=== PATIENT | female | born 2005 | race Caucasian/White ===

== ENCOUNTER 2024-06-17 03:38 | Emergency (ER) | payer OTHER, SELFPAY ==
[2024-06-17 03:39] VITALS: BP 127/76; PULSE 94; RESP 16; TEMP 36.9; O2SAT 99; BMI 19.1
[2024-06-17] MEDS: Acetaminophen 500 MG Tablet 1000 MG PO (04:06)
--- NOTE | 2024-06-17 04:06 | EX.ED.DYSGE1 ---
HPI History of Present Illness Chief Complaint: Abd Pain Informant: patient and parent Narrative Narrative: Patient is a 19-year-old female with no past medical history. She is a G1, P0. She states that her menstrual cycle was supposed to start /4 days ago and then did not do so. She reports she is typically regular. Therefore she took a home test and it was positive. She states that in the last 24 hours she has had intermittent pain along either side of the lower abdomen. She reports that there is no dysuria or back pain with this. She denies any vaginal bleeding or discharge. The patient's mother states that she had an ectopic once and has concern that with her child's recent positive test at home and now intermittent pain is having an ectopic and therefore she was brought in for evaluation [facility] Medical History no medical history no medical history Home Medications ?Medication ?Instructions ?Recorded ?Last Taken ?Type NK 06/17/24 Unknown History Allergy/AdvReac Type Severity Reaction Status Date / Time No Known Allergies Allergy Verified 06/17/24 03:39 Family History no significant family his Surgical History no surgical history Social History Smoking Status: Never smoker ROS ROS ED Constitutional Constitutional ED: Denies chills or fever(s) ENT ENT ED: Denies sore throat Cardiovascular Cardiovascular: Denies chest pain Respiratory/Chest Respiratory/Chest: Denies cough or dyspnea Gastrointestinal Gastrointestinal: Reports abdominal pain; Denies diarrhea, nausea or vomiting Genitourinary Genitourinary ED: Reports other Details: Negative for vaginal bleeding or discharge ; Denies dysuria or hematuria Musculoskeletal Musculoskeletal: Denies back pain Integumentary Denies rash Neurologic Neurologic: Denies headache(s) Hematologic/Lymphatic Hematologic/Lymphatic: Denies easy bleeding or easy bruising EXAM Physical Exam Const Vital Signs: 06/17/24 03:39 06/17/24 05:39 06/17/24 05:42 Temperature 98.4 F Temperature Source Oral Pulse Rate 94 72 74 Respiratory Rate 16 16 17 Blood Pressure 127/76 H 123/72 H 123/72 H Blood Pressure Mean 93 89 89 Pulse Ox 99 99 99 Oxygen Delivery Method Room Air Room Air Room Air 06/17/24 07:00 Temperature Temperature Source Pulse Rate 87 Respiratory Rate 16 Blood Pressure 113/66 Blood Pressure Mean 81 Pulse Ox 98 Oxygen Delivery Method Room Air Positive well nourished and well developed General Appearance ED: well developed; Negative for pallor HEENT HEENT Narrative: Normocephalic atraumatic Eyes PERRL and EOMs intact bilaterally General Eye ED: Negative for scleral icterus Neck supple Resp normal respiratory effort and clear to auscultation bilaterally Cardio regular rate and regular rhythm Rate: other Other Details: Regular rate and rhythm without murmurs rubs or gallop Radial and carotid pulses are equal and symmetric GI normal to inspection, nondistended, normoactive bowel sounds, non-tender, non-distended and no masses GI Narrative: No voluntary guarding or rigidity or pulsatile mass No fluid wave or peritoneal signs Auscultation: normoactive bowel sounds Palpation: soft Narrative: Patient deferred Back/Spine no CVA tenderness Extremity normal to inspection Extremity Narrative: No asymmetric edema no pitting edema negative Homans' sign bilaterally Neuro oriented x3 and CN's II-XII intact bilaterally Sensorium / Orientation: alert Motor Exam: strength 5/5 throughout Psych mental status grossly normal Skin no rashes or lesions noted and no wounds General Skin Exam: Negative for jaundice or pallor MDM MDM MDM Narrative Medical decision making narrative: Patient arrived to the ER with stable vitals and a soft nonsurgical abdomen. She reported intermittent abdominal pain that could fluctuate between the right and left lower regions over the last 1 to 2 days. There is no associated dysuria or hematuria or vaginal discharge. Patient denied any flank pain or fevers or chills. Mother had concern about a potential ectopic based on her pain and status as she had this in the past. Other differentials include UTI versus pyelonephritis versus round ligament pain. Basic blood work revealed no leukocytosis or left shift there was no sign of infection within the urine and no signs of acute kidney injury or clinically significant electrolyte abnormality. The patient's quantitative hCG value was 599 which indicate only 2 to 3 weeks . Based on her reported shifting pain that is intermittent I have low concern that this is an ectopic but based on her early status and pain it is still in the differential and therefore we will perform a transvaginal ultrasound. The patient and family were advised that based on her early status the ultrasound still might not show any signs of intrauterine which does not necessarily mean she has an ectopic but just that it is early in the stage. The patient is transvaginal ultrasound did not reveal any signs of intrauterine or ectopic . This is consistent with early gestational age. I informed the patient and family of this official read. I did offer and recommend that I consult with [facility] to confirm there is nothing further they would want performed or tested at this time. The patient and family state that they do not want that done and they will decide if they want to follow-up as an outpatient. I did instruct patient and family that in order to ensure her safety and confirm that something was not missed based on her the patient's early gestational age that she will need repeat blood work and a repeat ultrasound in the next few days or week. They state they understand this but will decide on their own if they continue to follow-up with BI[facility] SCIENTIST or have the further testing done. At this time the patient's vitals are stable her abdomen is soft and nonsurgical she does not have any further bouts of pain and therefore will be discharged home to hopefully follow-up as an outpatient History & Record Review Discussion w/independent historian: Patient and Family Lab Data Attestation: I reviewed the patient's lab results. Labs: Laboratory Results - last 24 hr 06/17/24 06/17/24 04:05 04:15 WBC 6.0 RBC 4.30 Hgb 12.7 Hct 37.3 MCV 86.7 MCH 29.5 MCHC 34.0 RDW Std Deviation 38.6 RDW Coeff of Jessa 12.1 Plt Count 219 MPV 9.4 Immature Gran % (Auto) 0.500 Neut % (Auto) 59.3 Lymph % (Auto) 30.3 [place] % (Auto) 7.7 Eos % (Auto) 1.5 Baso % (Auto) 0.7 Absolute Neuts (auto) 3.6 Absolute Lymphs (auto) 1.82 Nucleated RBC % 0 Sodium 140 Potassium 3.7 Chloride 111 H Carbon Dioxide 22.0 Anion Gap 7 BUN 10 Creatinine 0.65 Estim Creat Clear Calc 112.61 Est GFR (MDRD) Af Amer 149 Est GFR (MDRD) Non-Af 123 BUN/Creatinine Ratio 15.4 Glucose 90 Calcium 8.5 HCG, Quant 599 H Urine Color Yellow Urine Clarity Clear Urine pH 6.5 Ur Specific [place] 1.005 Urine Protein Negative Urine Glucose (UA) Normal Urine Ketones Negative Urine Occult Blood Negative Urine Nitrite Negative Urine Bilirubin Negative Urine Urobilinogen Normal Ur Leukocyte Esterase Negative Urine RBC 0 SEEN Urine WBC 0 SEEN Ur Squamous Epith Cells 0 SEEN Urine Bacteria 0 SEEN Urine Mucus 0 SEEN Blood Type O POSITIVE Radiography Diagnostic Testing: Clinical Impression(s) from Imaging Studies Obstetrics Ultrasound 06/17/24 04:51 IMPRESSION: No intrauterine gestation is seen. By coronary uterus. The endometrium measures 1.8 cm. Minimal amount of free fluid in the cul-de-sac. The adnexa are unremarkable. Correlation with serial beta HCG recommended. Reading Location: [facility] Discharge Plan Triage Chief Complaint: Abd Pain ED Provider: Mauri Cadet Dx/Rx/DC Orders Clinical Impression: Abdominal pain during in first trimester Instructions: Abdominal Pain, 1st Trimester Prescriptions: No Action NK Primary Care Provider: Care Physician,No Primary Referrals: Radha Trujillo MD [Med Staff - Active Staff] - Care Physician,No Primary [Primary Care Provider] - Activity Restrictions/Additional Instructions: Please follow-up with [facility]ENT[facility] to obtain repeat values and ultrasounds to ensure is progressing per usual. If you develop increased pain a fever or vaginal bleeding or have any further concerns please return to the hospital for repeat evaluation. Print Language: Danish Disposition Disposition: Home, Self Care
[2024-06-17 04:15] LABS: Absolute Lymphocyte Count 1.82 X10^3/uL (0.83-4.51); Absolute Neutrophil Count 3.6 X10^3/uL (2.0-7.7); Basophil# 0.04 X10^3/uL; Basophil% 0.7 % (0-1); Eosinophil# 0.09 X10^3/uL; Eosinophils% 1.5 % (0-5); Hematocrit 37.3 % (37-47); Hemoglobin 12.7 g/dL (12.0-15.0); Lymphocyte # 1.82 X10^3/ul (0.83-4.51); Lymphocyte % 30.3 % (19-41); Mean Corpuscular Hgb 29.5 pg (27.0-32.0); Mean Corpuscular Volume 86.7 fL (81-99); Mean Platelet Vol. 9.4 fl (6.2-12.0); Monocyte# 0.46 X10^3/uL; Monocyte% 7.7 % (0-10); NRBC Flagged by Analyzer 0 % (0-5); Neutrophil # 3.56 X10^3/uL (2.7-7.7); Neutrophil % 59.3 % (47-70); Platelet Count 219 K/mm3 (150-450); RBC Distribution Width CV 12.1 % (11.6-14.6); RBC Distribution Width SD 38.6 fl (35.1-43.9)
[2024-06-17 04:20] LABS: Bacteria 0 SEEN /hpf (None Seen); Mucous, Urine 0 SEEN /hpf (<or=2+); Red Blood Cells-Urine 0 SEEN /hpf (0-5); Squamous Epithelial Cells - UA 0 SEEN /hpf (5-10); White Blood Cells 0 SEEN /hpf (0-5)
[2024-06-17 04:21] LABS: Color, Urine Yellow (Yellow); Glucose, Dipstick Normal (Normal); Ketone-Dipstick Negative (Negative); Leukocyte Esterase-Dipstick Negative /ul (Negative); Nitrite-Dipstick Negative (Negative); Occult Blood-Urine Negative /ul (Negative); Protein-Dipstick Negative (Negative); Specific Gravity, Urine 1.005 (1.002-1.030); Urine Bilirubin Dipstick Negative (Negative); Urine Clarity Clear (Clear); Urine Urobilinogen Normal (Normal); Urine pH 6.5 (5.0 - 8.0)
[2024-06-17 04:30] LABS: Anion Gap 7 (5-15); BUN 10 mg/dL (7-18); BUN/Creat Ratio 15.4 RATIO (10-20); Calcium,Total 8.5 mg/dL (8.5-10.1); Chloride 111 mmol/L (98-107); Creatinine, Serum 0.65 mg/dL (0.55-1.02); EST Glomerular Filtration Rate 123 mL/min (>60); Est Glom Filt Rate - Afr Amer 149 mL/min (>60); Estimated Creatinine Clearance 112.61 ml/min; Glucose 90 mg/dL (74-106); Potassium 3.7 mmol/L (3.5-5.1); Sodium Level 140 mmol/L (136-145)
[2024-06-17 04:33] LABS: hCG Titer Quant., Serum 599 mIU/mL (1-3)
--- NOTE | 2024-06-17 04:51 | US_ITS ---
PROCEDURE: TRANSVAGINAL W/PREG US REASON FOR EXAM: Pelvic pain. LMP: May 16, 2024. HC COMPARISON: None. FINDINGS: Comments: Transvaginal imaging was performed Number of Gestational Sacs: None Number of Fetuses: None Yolk Sac: Not visualized Uterine Abnormalities: Maternal uterus is unremarkable. The uterus measures 8.9 cm x 7.1 cm x 4.8 cm. The endometrium measures 1.8 cm. By coronary uterus. Ovaries / Adnexa: Both maternal ovaries are visualized and unremarkable. Minimal amount of free fluid in the cul-de-sac. US/Transvaginal w/Preg US IMPRESSION: No intrauterine gestation is seen. By coronary uterus. The endometrium measures 1.8 cm. Minimal amount of free fluid in the cul-de-sac. The adnexa are unremarkable. Correlation with serial beta HCG recommended. Reading Location: [facility]
[2024-06-17 05:39] VITALS: BP 123/72; PULSE 72; RESP 16; O2SAT 99
[2024-06-17 05:42] VITALS: BP 123/72; PULSE 74; RESP 17; O2SAT 99
[2024-06-17 07:00] VITALS: BP 113/66; PULSE 87; RESP 16; O2SAT 98
[2024-06-17 07:42] VITALS: BP 117/74; PULSE 78; RESP 18; TEMP 36.8; O2SAT 98
== END 2024-06-17 08:00 | disposition home or self-care (01) ==
PROVIDERS: Emergency Provider Emergency Medicine; Visit Provider Emergency Medicine
DX: O99.891 Other specified diseases and conditions complicating pregnancy (principal); R10.32 Left lower quadrant pain; Z3A.01 Less than 8 weeks gestation of pregnancy; R10.31 Right lower quadrant pain
CPT/HCPCS: 76817; 80048; 81001; 84702; 85025; 86900; 86901; 99282; A4216

== ENCOUNTER 2024-06-30 20:39 | Emergency (ER) | payer OTHER, SELFPAY ==
[2024-06-30 20:40] VITALS: BP 108/66; PULSE 92; RESP 15; TEMP 36.6; O2SAT 99; BMI 19.9
--- NOTE | 2024-06-30 21:11 | EDS_ITS ---
HPI <JOSEFINA Waldron - Last Filed: 06/30/24 21:14> HPI - Female History of Present Illness Chief Complaint: Vag Bld, Preg Narrative Narrative: Patient is a 19-year-old female with no significant medical history, presenting to the emergency department for complaints of vaginal bleeding, patient is what she believes is 5 weeks . Patient states her last menstrual cycle was May 16, 2024. Patient was seen here 2 weeks ago, patient had an ultrasound that was negative for any uterine , patient states that yesterday she had some significant vaginal bleeding, patient had some lower abdominal pain today even though the bleeding was more mild and is here for evaluation. Patient has not seen an MATERIAL CHECKER yet at this time. She is only been seen here 2 weeks ago. Patient is O+. Initial quantitative was 599 PFSH <JOSEFINA Waldron - Last Filed: 06/30/24 21:14> PFSH Medical History no medical history Home Medications ?Medication ?Instructions ?Recorded ?Last Taken ?Type NK 06/17/24 Unknown History Allergy/AdvReac Type Severity Reaction Status Date / Time No Known Allergies Allergy Verified 06/30/24 20:40 Social History Smoking Status: Never smoker ROS <JOSEFINA Waldron - Last Filed: 06/30/24 21:14> ROS ED ROS Narrative Constitutional: Negative for fever, chills, weight loss, weakness Eyes: Negative for vision loss, vision change, double vision ENT: Negative for any sore throat, ear pain, congestion Cardiovascular: Negative for any chest pain, tightness, palpitations Respiratory: Negative for any cough, sputum production, hemoptysis, dyspnea, dyspnea on exertion, orthopnea Gastrointestinal: Negative for any, nausea, vomiting, diarrhea, constipation, blood in stool, blood in vomit. Positive lower abdominal pain : Negative for any urinary frequency, dysuria, retention, blood in urine. Positive for vaginal bleeding, Muscle skeletal: Negative for any neck pain, back pain Neurological: Negative for any headache, syncope, dizziness Skin: Negative for any rashes, itching, abrasions, lacerations Psychiatric: Negative for any depression, anxiety, stress, suicidal ideation, homicidal ideation Hematologic: Negative for any excessive bruising, easy bleeding EXAM <JOSEFINA Waldron - Last Filed: 06/30/24 21:14> Physical Exam Narrative Exam Narrative: Vital signs reviewed. HEET: Head normocephalic atraumatic, TMs clear bilaterally. Posterior pharynx is clear, moist mucous membranes. Nares clear bilaterally. Neck: Supple with no lymphadenopathy or tenderness. No signs of meningismus. Cardiac: Regular rate and rhythm no murmurs gallops or rubs, equal peripheral pulses bilaterally. Respiratory: Lungs clear to auscultation bilaterally. No chest tenderness. Abdomen: Soft, nontender, nondistended. No abdominal bruit or pulsatile masses. No hepatosplenomegaly Extremities: No peripheral edema, no signs of gross trauma or deformity. Active full range of motion of all extremities. Neuro: Cranial nerves II through XII intact, no focal neurological deficits. Skin: Clean dry and intact with no rash, purpura, petechiae, vesicles or pustules. Backs/flank: No CVA tenderness, no midline spinal tenderness, no deformity. Psych: Normal mood and affect. No SI, HI or acute psychosis. Const Vital Signs: 06/30/24 20:40 06/30/24 23:06 Temperature 97.9 F Temperature Source Temporal Pulse Rate 92 79 Respiratory Rate 15 18 Blood Pressure 108/66 118/64 Blood Pressure Mean 80 82 Pulse Ox 99 100 Oxygen Delivery Method Room Air Room Air <Dr. Azael Batres DO - Last Filed: 06/30/24 23:42> Physical Exam Const Vital Signs: 06/30/24 20:40 06/30/24 23:06 Temperature 97.9 F Temperature Source Temporal Pulse Rate 92 79 Respiratory Rate 15 18 Blood Pressure 108/66 118/64 Blood Pressure Mean 80 82 Pulse Ox 99 100 Oxygen Delivery Method Room Air Room Air <Dr. Kenna Tariq DO - Last Filed: 07/01/24 01:05> Physical Exam Const Vital Signs: 06/30/24 20:40 06/30/24 23:06 Temperature 97.9 F Temperature Source Temporal Pulse Rate 92 79 Respiratory Rate 15 18 Blood Pressure 108/66 118/64 Blood Pressure Mean 80 82 Pulse Ox 99 100 Oxygen Delivery Method Room Air Room Air MDM <JOSEFINA Waldron - Last Filed: 06/30/24 21:14> MDM Lab Data Labs: Laboratory Results - last 24 hr 06/30/24 06/30/24 21:08 21:10 WBC 8.6 RBC 4.32 Hgb 13.0 Hct 37.5 MCV 86.8 MCH 30.1 MCHC 34.7 RDW Std Deviation 37.4 RDW Coeff of Jessa 11.7 Plt Count 231 MPV 9.6 Immature Gran % (Auto) 0.600 Neut % (Auto) 60.8 Lymph % (Auto) 29.7 [place] % (Auto) 7.1 Eos % (Auto) 1.3 Baso % (Auto) 0.5 Absolute Neuts (auto) 5.2 Absolute Lymphs (auto) 2.55 Nucleated RBC % 0 Sodium 139 Potassium 3.8 Chloride 107 Carbon Dioxide 26.0 Anion Gap 6 BUN 8 Creatinine 0.61 Estim Creat Clear Calc 121.18 Est GFR (MDRD) Af Amer 160 Est GFR (MDRD) Non-Af 133 BUN/Creatinine Ratio 13.2 Glucose 89 Calcium 9.1 HCG, Quant 83387 H Urine Color Yellow Urine Clarity Clear Urine pH 7.0 Ur Specific [employer] 1.010 Urine Protein 15 H Urine Glucose (UA) Normal Urine Ketones Negative Urine Occult Blood 250 H Urine Nitrite Negative Urine Bilirubin Negative Urine Urobilinogen Normal Ur Leukocyte Esterase Negative Urine RBC 0-5 SEEN Urine WBC 0-5 SEEN Ur Squamous Epith Cells 0-5 SEEN Urine Bacteria 1+ Urine Mucus 0 SEEN Radiography Diagnostic Testing: Clinical Impression(s) from Imaging Studies Obstetrics Ultrasound 06/30/24 22:01 IMPRESSION: 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 2. Twin A on left demonstrates gestational sac full of debris with subchorionic hemorrhage. No yolk sac noted. 3. Twin B on right demonstrates yolk sac corresponding to 6 weeks 2 days. No pole or heart rate noted at this time. This may be due to early dates. 4. Left ovarian cyst Reading Location: [facility] Treatment and Re-Evaluation Narrative: Differential diagnosis includes however is not limited to: Spontaneous , dysmenorrhea, threatened miscarriage, ectopic , ovarian cyst Patient appears generally well, vital signs are stable, patient is nontoxic- appearing. Presenting to the emerged department for complaints of vaginal bleeding, lower abdominal pain, patient states that she is 5 weeks . Patient's initial hCG quantitative done on June 16 was 599, the vaginal ultrasound showed no gestational sac in the uterus. This likely secondary to being too early. Patient will receive urinalysis, basic labs, hCG quantitative to compare the number. <Dr. Azael Batres, DO - Last Filed: 06/30/24 23:42> [facility] Narrative Medical decision making narrative: I have personally performed a face to face assessment of the patient and have reviewed the SARABJIT Note. I performed a substantive portion of the visit including all aspects of the following. My dorsey findings include: History: Patient presents with change in the lower abdominal and pelvic pain that has been getting worse over the past 2 weeks. Patient states it comes and goes. Patient states it became worse tonight. Patient states it is worse with movement. Patient describes her pain as sharp. Patient states it is localized to the lower abdomen and pelvis. Patient admits to some subjective chills and a headache. Patient denies any nausea or vomiting. Patient denies any urinary complaints. Family states the patient has been following with a nurse transmission inspector (Georgiana Ennis) but does not see an MATERIAL CHECKER physician. Exam: Vital signs are stable. Patient is afebrile. Patient is in no acute distress. Oral mucosa is pink and moist. Neck is supple. Trachea is midline. There is no JVD. Heart was regular rate and rhythm. Lungs are clear and equal bilaterally. Abdomen is soft. Bowel sounds are normal. There is lower abdominal tenderness. There is no rebound or guarding noted. Cranial nerves II through XII are intact. There are no focal motor or sensory deficits. Medical Decision Making: Differential diagnosis includes ectopic , ovarian cyst, urinary tract infection, electrolyte abnormality, and viral illness. CBC will be obtained to assess for leukocytosis and anemia. Basic metabolic profile will be obtained to assess for electrolyte abnormality and renal function. Urinalysis will be obtained to assess for urinary tract infection and hematuria. Quantitative hCG will be obtained to assess for pregn katty. CBC was reviewed and was within normal limits. Basic metabolic profile was reviewed and was within normal limits. Quantitative hCG was reviewed and was [address]. Urinalysis was reviewed. There is no evidence of urinary tract infection or hematuria. Because of the increasing quantitative hCG and pelvic pain, pelvic ultrasound was ordered to assess for ectopic and ovarian torsion. Care of the patient will be turned over to the oncoming physician pending ultrasound results. Lab Data Labs: Laboratory Results - last 24 hr 06/30/24 06/30/24 21:08 21:10 WBC 8.6 RBC 4.32 Hgb 13.0 Hct 37.5 MCV 86.8 MCH 30.1 MCHC 34.7 RDW Std Deviation 37.4 RDW Coeff of Jessa 11.7 Plt Count 231 MPV 9.6 Immature Gran % (Auto) 0.600 Neut % (Auto) 60.8 Lymph % (Auto) 29.7 [place] % (Auto) 7.1 Eos % (Auto) 1.3 Baso % (Auto) 0.5 Absolute Neuts (auto) 5.2 Absolute Lymphs (auto) 2.55 Nucleated RBC % 0 Sodium 139 Potassium 3.8 Chloride 107 Carbon Dioxide 26.0 Anion Gap 6 BUN 8 Creatinine 0.61 Estim Creat Clear Calc 121.18 Est GFR (MDRD) Af Amer 160 Est GFR (MDRD) Non-Af 133 BUN/Creatinine Ratio 13.2 Glucose 89 Calcium 9.1 HCG, Quant 33896 H Urine Color Yellow Urine Clarity Clear Urine pH 7.0 Ur Specific [employer] 1.010 Urine Protein 15 H Urine Glucose (UA) Normal Urine Ketones Negative Urine Occult Blood 250 H Urine Nitrite Negative Urine Bilirubin Negative Urine Urobilinogen Normal Ur Leukocyte Esterase Negative Urine RBC 0-5 SEEN Urine WBC 0-5 SEEN Ur Squamous Epith Cells 0-5 SEEN Urine Bacteria 1+ Urine Mucus 0 SEEN Radiography Diagnostic Testing: Clinical Impression(s) from Imaging Studies Obstetrics Ultrasound 06/30/24 22:01 IMPRESSION: 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 2. Twin A on left demonstrates gestational sac full of debris with subchorionic hemorrhage. No yolk sac noted. 3. Twin B on right demonstrates yolk sac corresponding to 6 weeks 2 days. No pole or heart rate noted at this time. This may be due to early dates. 4. Left ovarian cyst Reading Location: [facility] <Dr. Kenna Tariq, DO - Last Filed: 07/01/24 01:05> [facility] Narrative Medical decision making narrative: I have personally performed a face to face assessment of the patient and have reviewed the SARABJIT Note. I performed a substantive portion of the visit including all aspects of the following. My dorsey findings include: History: Patient presents with change in the lower abdominal and pelvic pain that has been getting worse over the past 2 weeks. Patient states it comes and goes. Patient states it became worse tonight. Patient states it is worse with movement. Patient describes her pain as sharp. Patient states it is localized to the lower abdomen and pelvis. Patient admits to some subjective chills and a headache. Patient denies any nausea or vomiting. Patient denies any urinary complaints. Family states the patient has been following with a nurse transmission inspector (Georgiana Ennis) but does not see an MATERIAL CHECKER physician. Exam: Vital signs are stable. Patient is afebrile. Patient is in no acute distress. Oral mucosa is pink and moist. Neck is supple. Trachea is midline. There is no JVD. Heart was regular rate and rhythm. Lungs are clear and equal bilaterally. Abdomen is soft. Bowel sounds are normal. There is lower abdominal tenderness. There is no rebound or guarding noted. Cranial nerves II through XII are intact. There are no focal motor or sensory deficits. Medical Decision Making: Differential diagnosis includes ectopic , ovarian cyst, urinary tract infection, electrolyte abnormality, and viral illness. CBC will be obtained to assess for leukocytosis and anemia. Basic metabolic profile will be obtained to assess for electrolyte abnormality and renal function. Urinalysis will be obtained to assess for urinary tract infection and hematuria. Quantitative hCG will be obtained to assess for . CBC was reviewed and was within normal limits. Basic metabolic profile was reviewed and was within normal limits. Quantitative hCG was reviewed and was 05826. Urinalysis was reviewed. There is no evidence of urinary tract infection or hematuria. Because of the increasing quantitative hCG and pelvic pain, pelvic ultrasound was ordered to assess for ectopic and ovarian torsion. Care of the patient will be turned over to the oncoming physician pending ultrasound results. Care of patient turned over to me Dr. Tariq. Patient seen by Dr. Godoy initially and I was asked to check pelvic ultrasound results. Patient on ultrasound was noted to have a bicornate uterus. Patient had twin A on the left demonstrating gestational sac full of debris with subchorionic hemorrhage. No yolk sac was noted. Twin B on the right demonstrates yolk sac corresponding to 6 weeks 2 days. No pole or heart rate noted at this time. This may be due to early dates. I did discuss case with Dr. Hernandez who is on-call for MATERIAL CHECKER. Patient is O+. She is not having heavy bleeding and H&H was stable. Patient will be discharged to home and advised to follow-up with Dr. Hernandez in the office that she will need follow-up quant and ultrasound. Advised to return if persistent heavy bleeding, severe abdominal pain, or condition worsening way. Lab Data Labs: Laboratory Results - last 24 hr 06/30/24 06/30/24 21:08 21:10 WBC 8.6 RBC 4.32 Hgb 13.0 Hct 37.5 MCV 86.8 MCH 30.1 MCHC 34.7 RDW Std Deviation 37.4 RDW Coeff of Jessa 11.7 Plt Count 231 MPV 9.6 Immature Gran % (Auto) 0.600 Neut % (Auto) 60.8 Lymph % (Auto) 29.7 [place] % (Auto) 7.1 Eos % (Auto) 1.3 Baso % (Auto) 0.5 Absolute Neuts (auto) 5.2 Absolute Lymphs (auto) 2.55 Nucleated RBC % 0 Sodium 139 Potassium 3.8 Chloride 107 Carbon Dioxide 26.0 Anion Gap 6 BUN 8 Creatinine 0.61 Estim Creat Clear Calc 121.18 Est GFR (MDRD) Af Amer 160 Est GFR (MDRD) Non-Af 133 BUN/Creatinine Ratio 13.2 Glucose 89 Calcium 9.1 HCG, Quant 67096 H Urine Color Yellow Urine Clarity Clear Urine pH 7.0 Ur Specific [employer] 1.010 Urine Protein 15 H Urine Glucose (UA) Normal Urine Ketones Negative Urine Occult Blood 250 H Urine Nitrite Negative Urine Bilirubin Negative Urine Urobilinogen Normal Ur Leukocyte Esterase Negative Urine RBC 0-5 SEEN Urine WBC 0-5 SEEN Ur Squamous Epith Cells 0-5 SEEN Urine Bacteria 1+ Urine Mucus 0 SEEN Radiography Diagnostic Testing: Clinical Impression(s) from Imaging Studies Obstetrics Ultrasound 06/30/24 22:01 IMPRESSION: 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 2. Twin A on left demonstrates gestational sac full of debris with subchorionic hemorrhage. No yolk sac noted. 3. Twin B on right demonstrates yolk sac corresponding to 6 weeks 2 days. No pole or heart rate noted at this time. This may be due to early dates. 4. Left ovarian cyst [facility] Discharge Plan Triage Chief Complaint: Vag Bld, Preg ED Midlevel Provider: Rajeev Lamb ED Provider: Azael Batres Dx/Rx/DC Orders Clinical Impression: Pelvic pain, , Threatened in first trimester Instructions: ED Abdominal Pain, Early , Miscarriage Threatened Prescriptions: No Action NK Primary Care Provider: Care Physician,No Primary Referrals: Cinda Hernandez MD [Med Staff - Active Staff] - 2 Days Care Physician,No Primary [Primary Care Provider] - Print Language: Chinese Disposition Disposition: Home, Self Care
[2024-06-30 21:17] LABS: Mucous, Urine 0 SEEN /hpf (<or=2+)
[2024-06-30 21:24] LABS: Glucose, Dipstick Normal (Normal); Ketone-Dipstick Negative (Negative); Leukocyte Esterase-Dipstick Negative /ul (Negative); Nitrite-Dipstick Negative (Negative); Occult Blood-Urine 250 /ul (Negative); Protein-Dipstick 15 mg/dl (Negative); Urine Bilirubin Dipstick Negative (Negative); Urine Urobilinogen Normal (Normal)
[2024-06-30 21:25] LABS: Absolute Lymphocyte Count 2.55 X10^3/uL (0.83-4.51); Absolute Neutrophil Count 5.2 X10^3/uL (2.0-7.7); Basophil# 0.04 X10^3/uL; Basophil% 0.5 % (0-1); Eosinophil# 0.11 X10^3/uL; Eosinophils% 1.3 % (0-5); Hematocrit 37.5 % (37-47); Lymphocyte # 2.55 X10^3/ul (0.83-4.51); Lymphocyte % 29.7 % (19-41); Mean Corp Hgb Conc 34.7 g/dL (32-36); Mean Corpuscular Hgb 30.1 pg (27.0-32.0); Mean Corpuscular Volume 86.8 fL (81-99); Mean Platelet Vol. 9.6 fl (6.2-12.0); Monocyte# 0.61 X10^3/uL; Monocyte% 7.1 % (0-10); NRBC Flagged by Analyzer 0 % (0-5); Neutrophil # 5.24 X10^3/uL (2.7-7.7); Neutrophil % 60.8 % (47-70); Platelet Count 231 K/mm3 (150-450); RBC Distribution Width CV 11.7 % (11.6-14.6); RBC Distribution Width SD 37.4 fl (35.1-43.9); Red Blood Count 4.32 M/mm3 (4.2-5.4); White Blood Count 8.6 K/mm3 (4.4-11.0)
[2024-06-30 21:25] LABS: Color, Urine Yellow (Yellow); Urine Clarity Clear (Clear)
[2024-06-30 21:36] LABS: Anion Gap 6 (5-15); BUN 8 mg/dL (7-18); BUN/Creat Ratio 13.2 RATIO (10-20); Calcium,Total 9.1 mg/dL (8.5-10.1); Chloride 107 mmol/L (98-107); Creatinine, Serum 0.61 mg/dL (0.55-1.02); EST Glomerular Filtration Rate 133 mL/min (>60); Est Glom Filt Rate - Afr Amer 160 mL/min (>60); Estimated Creatinine Clearance 121.18 ml/min; Glucose 89 mg/dL (74-106); Potassium 3.8 mmol/L (3.5-5.1); Sodium Level 139 mmol/L (136-145)
[2024-06-30 21:42] LABS: Bacteria 1+ /hpf (None Seen); Red Blood Cells-Urine 0-5 SEEN /hpf (0-5); Squamous Epithelial Cells - UA 0-5 SEEN /hpf (5-10); White Blood Cells 0-5 SEEN /hpf (0-5)
[2024-06-30 21:59] LABS: hCG Titer Quant., Serum 17135 mIU/mL (1-3)
--- NOTE | 2024-06-30 22:01 | US_ITS ---
PROCEDURE: TRANSVAGINAL W/PREG US REASON FOR EXAM: Pelvic pain COMPARISON: 06/19/2024 FINDINGS: Comments: Number of Gestational Sacs: 2 Number of Fetuses: 1 Chorionicity and Amnionicity: Dichorionic Ovaries / Adnexa: Both maternal ovaries are visualized and unremarkable. Right ovary measures 2.9 x 2.2 x 2.0 cm Left ovary measures 3.2 x 2.9 x 3.0 cm and contains a hypoechoic focus measuring 3.2 x 1.7 x 3.0 cm Uterine Abnormalities: Maternal uterus is unremarkable. It measures 9.2 x 8.3 x 4.3 cm. ----- Twin A: Gestational Sac Shape: Slightly misshapen, gestational sac contains complex debris. There is a 1.1 x 0.9 x 0.5 cm subchorionic hematoma Heart Rate: Not detected (average) Yolk Sac: Nonvisualized DIMENSIONS (A): Parameter Measurement / EGA Gomer Rump Length: Not visualized Gestational Sac: 1.65 cm/6 weeks 3 days Yolk Sac: Not visualized ESTIMATED GESTATIONAL AGE (A): By Ultrasound: 6 weeks 3 days ESTIMATED DATE OF DELIVERY (A): By Ultrasound: 02/20/2025 ----- Twin B: Gestational Sac Shape: Slightly misshapen Heart Rate: Not detected Yolk Sac: Present and unremarkable. 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 2. Twin A on left demonstrates gestational sac full of debris with subchorioni c hemorrhage. No yolk sac noted. 3. Twin B on right demonstrates yolk sac corresponding to 6 weeks 2 days. No pole or heart rate noted at this time. This may be due to early dates. 4. Left ovarian cyst Reading Location: [facility]
[2024-06-30 23:06] VITALS: BP 118/64; PULSE 79; RESP 18; O2SAT 100
[2024-07-01 01:00] VITALS: BP 110/74; PULSE 68; RESP 16; TEMP 36.6; O2SAT 99
== END 2024-07-01 01:17 | disposition home or self-care (01) ==
PROVIDERS: Nurse Practitioner; Emergency Provider Emergency Medicine; Visit Provider Emergency Medicine
DX: O20.0 Threatened abortion (principal); O26.891 Other specified pregnancy related conditions, first trimester; R10.2 Pelvic and perineal pain; Z3A.01 Less than 8 weeks gestation of pregnancy
CPT/HCPCS: 76817; 80048; 81001; 84702; 85025; 99283; A4216